=== PATIENT | male | born 1975 | race Caucasian/White ===

== ENCOUNTER 2018-10-18 20:56 | Emergency (ER) | payer OTHER ==
[~2018-10-18] VITALS: Ht 175.3 cm; Wt 106.0 kg
[2018-10-18] MEDS ORDERED: KETOROLAC 30 MG/1 ML ONE (22:44)
[2018-10-18] MEDS ORDERED: OXYcodone/APAP 10/325MG TABLET ONE (22:45)
[2018-10-18] MEDS ORDERED: OXYcodone/APAP 10/325MG TABLET PO ONE (23:00)
[2018-10-18] MEDS ORDERED: KETOROLAC 30 MG/1 ML IM ONE (23:00)
[2018-10-18 23:02] LABS: MICROSCOPIC INDICATED
[2018-10-18 23:09] LABS: CULTURE INDICATED? NO
[2018-10-18 23:36] LABS: BASOPHILS # (AUTO) 0.09 x10^3/uL (0-0.1); BASOPHILS % (AUTO) 1 % (0-1); EOSINOPHILS # (AUTO) 0.03 x10^3/uL (0-0.4); EOSINOPHILS % (AUTO) 0 % (1-7); LYMPHOCYTES # (AUTO) 0.93 x10^3/uL (1-3.4); LYMPHOCYTES % (AUTO) 7 % (22-44); MD NO; MEAN CORPUSCULAR HEMOGLOBIN 30.5 pg (27.5-34.5); MEAN CORPUSCULAR HGB CONC 35.1 g/dL (33.2-36.2); MEAN CORPUSCULAR VOLUME 86.8 fL (81-97); MONOCYTES # (AUTO) 0.52 x10^3/uL (0.2-0.8); MONOCYTES % (AUTO) 4 % (2-9); NEUTROPHILS % (AUTO) 89 % (42-75); PLATELET COUNT 248 x10^3/uL (130-400); RED BLOOD COUNT 5.83 x10^6/uL (4.38-5.82); RED CELL DISTRIBUTION WIDTH 12.7 % (9.4-14.8)
[2018-10-18 23:45] LABS: ALANINE AMINOTRANSFERASE 99 U/L (12-78); ALBUMIN 4.5 g/dL (3.4-5.0); ANION GAP 11 mmol/L (5-15); CALCIUM 9.6 mg/dL (8.5-10.1); CHLORIDE 108 mmol/L (98-107); CREATININE 1.42 mg/dL (0.7-1.3)
[2018-10-18 23:48] LABS: ALKALINE PHOSPHATASE 86 U/L (45-117); BILIRUBIN,TOTAL 0.7 mg/dL (0.2-1.0); TOTAL PROTEIN 7.8 g/dL (6.4-8.2)
[2018-10-19] MEDS ORDERED: HYDROmorphone 2 MG/ML, 1ML ONE (00:12)
[2018-10-19 00:30] VITALS: BP 134/67
[2018-10-19] MEDS ORDERED: HYDROmorphone 2 MG/ML, 1ML IM ONE (00:30)
[2018-10-19] MEDS ORDERED: HYDROmorphone 1 MG/ML, 1ML IM ONE (00:30)
== END 2018-10-19 00:31 | disposition home or self-care (01) ==
LOC: ED 23:59
DX: N45.2 Orchitis (principal)
CPT/HCPCS: 36415; 76770; 76870; 80053; 81001; 85025; 96372; 99284; J1170; J1885

== ENCOUNTER 2018-10-21 20:33 | Emergency (ER) | payer OTHER ==
[~2018-10-21] VITALS: Ht 175.3 cm; Wt 104.9 kg
[2018-10-21] MEDS ORDERED: KETOROLAC 30 MG/1 ML ONE (21:19)
[2018-10-21] MEDS ORDERED: ONDANSETRON 2MG/ML, 2ML ONE (21:19)
[2018-10-21] MEDS ORDERED: MORPHINE SULFATE 4 MG/ML, 1ML ONE (21:20)
[2018-10-21] MEDS ORDERED: KETOROLAC 30 MG/1 ML IVPush ONE (21:30)
[2018-10-21] MEDS ORDERED: MORPHINE SULFATE 4 MG/ML, 1ML IVPush PRN (21:30)
[2018-10-21] MEDS ORDERED: ONDANSETRON 2MG/ML, 2ML IVPush ONE (21:30)
[2018-10-21 21:38] LABS: BASOPHILS # (AUTO) 0.02 x10^3/uL (0-0.1); BASOPHILS % (AUTO) 0 % (0-1); EOSINOPHILS # (AUTO) 0.03 x10^3/uL (0-0.4); EOSINOPHILS % (AUTO) 0 % (1-7); LYMPHOCYTES # (AUTO) 0.94 x10^3/uL (1-3.4); LYMPHOCYTES % (AUTO) 7 % (22-44); MD NO; MEAN CORPUSCULAR HEMOGLOBIN 30.2 pg (27.5-34.5); MEAN CORPUSCULAR HGB CONC 34.7 g/dL (33.2-36.2); MEAN CORPUSCULAR VOLUME 87.3 fL (81-97); MEAN PLATELET VOLUME 8.4 fL (7.4-10.4); MONOCYTES # (AUTO) 0.65 x10^3/uL (0.2-0.8); MONOCYTES % (AUTO) 5 % (2-9); NEUTROPHILS # (AUTO) 11.58 x10^3/uL (1.8-6.8); NEUTROPHILS % (AUTO) 88 % (42-75); PLATELET COUNT 225 x10^3/uL (130-400); RED BLOOD COUNT 5.98 x10^6/uL (4.38-5.82); RED CELL DISTRIBUTION WIDTH 12.5 % (9.4-14.8)
[2018-10-21 21:46] LABS: ALBUMIN 4.3 g/dL (3.4-5.0); ANION GAP 9 mmol/L (5-15); CALCIUM 9.4 mg/dL (8.5-10.1); CHLORIDE 108 mmol/L (98-107); CREATININE 1.48 mg/dL (0.7-1.3)
[2018-10-21 22:38] LABS: MICROSCOPIC AUTO
[2018-10-21 22:41] LABS: CULTURE INDICATED? NO
[2018-10-21 23:51] VITALS: BP 121/68
== END 2018-10-21 23:53 | disposition home or self-care (01) ==
LOC: ED 22:16
DX: N20.2 Calculus of kidney with calculus of ureter (principal); R31.9 Hematuria, unspecified
CPT/HCPCS: 36415; 74176; 80048; 81001; 82040; 85025; 96374; 96375; 99284; J1885; J2405

== ENCOUNTER 2018-11-22 08:02 | Emergency (ER) | payer OTHER ==
[~2018-11-22] VITALS: Ht 175.3 cm; Wt 106.7 kg
[2018-11-22] MEDS ORDERED: ONDANSETRON 2MG/ML, 2ML ONE (08:27)
[2018-11-22] MEDS ORDERED: KETOROLAC 30 MG/1 ML ONE (08:27)
[2018-11-22] MEDS: SODIUM CHLORIDE FLUSH 10ML SYR IVF ONE (08:30)
[2018-11-22] MEDS: ONDANSETRON 2MG/ML, 2ML IVPush ONE (08:31)
[2018-11-22] MEDS: KETOROLAC 30 MG/1 ML IVPush ONE (08:31)
[2018-11-22 08:57] LABS: BASOPHILS # (AUTO) 0.03 x10^3/uL (0-0.1); BASOPHILS % (AUTO) 0 % (0-1); EOSINOPHILS # (AUTO) 0.09 x10^3/uL (0-0.4); EOSINOPHILS % (AUTO) 1 % (1-7); LYMPHOCYTES # (AUTO) 1.39 x10^3/uL (1-3.4); LYMPHOCYTES % (AUTO) 18 % (22-44); MD NO; MEAN CORPUSCULAR HEMOGLOBIN 29.9 pg (27.5-34.5); MEAN CORPUSCULAR HGB CONC 34.3 g/dL (33.2-36.2); MEAN CORPUSCULAR VOLUME 87.3 fL (81-97); MEAN PLATELET VOLUME 8.2 fL (7.4-10.4); MONOCYTES % (AUTO) 8 % (2-9); NEUTROPHILS # (AUTO) 5.75 x10^3/uL (1.8-6.8); NEUTROPHILS % (AUTO) 73 % (42-75); PLATELET COUNT 213 x10^3/uL (130-400); RED BLOOD COUNT 5.91 x10^6/uL (4.38-5.82); RED CELL DISTRIBUTION WIDTH 12.7 % (9.4-14.8)
[2018-11-22 09:00] LABS: MICROSCOPIC INDICATED
[2018-11-22 09:02] VITALS: BP 173/94
[2018-11-22 09:18] LABS: ALBUMIN 4.3 g/dL (3.4-5.0); ANION GAP 8 mmol/L (5-15); CHLORIDE 108 mmol/L (98-107)
[2018-11-22 09:18] LABS: CULTURE INDICATED? NO
[2018-11-22 09:19] LABS: CREATININE 1.37 mg/dL (0.7-1.3)
--- NOTE | 2018-11-22 09:29 | NUR ---
arnel [place] spoke with dr richmond.
== END 2018-11-22 10:08 | disposition home or self-care (01) ==
LOC: ED 08:45
DX: N13.2 Hydronephrosis with renal and ureteral calculous obstruction (principal)
CPT/HCPCS: 36415; 74176; 80048; 81001; 82040; 85025; 96374; 96375; 99284; J1885; J2405